=== PATIENT | male | born 1990 ===

== ENCOUNTER 2018-11-01 15:44 | Emergency (ER) | payer SELFPAY ==
[~2018-11-01] VITALS: Ht 182.9 cm; Wt 101.4 kg
[2018-11-01 15:49] VITALS: Ht 182.9 cm; Wt 101.4 kg
[2018-11-01 16:08] LABS: APPEARANCE CLEAR (CLEAR); BILIRUBIN NEGATIVE (NEGATIVE); COLOR STRAW (YELLOW); GLUCOSE NEGATIVE (NEGATIVE); KETONE NEGATIVE (NEGATIVE); NITRITE NEGATIVE (NEGATIVE); PROTEIN NEGATIVE (NEGATIVE); UROBILINOGEN NORMAL (NORMAL)
[2018-11-01 16:21] LABS: UDS - AMPHET NEGATIVE QUAL (NEGATIVE); UDS - BARB NEGATIVE QUAL (NEGATIVE); UDS - BENZO POSITIVE QUAL (NEGATIVE); UDS - COCAINE NEGATIVE QUAL (NEGATIVE); UDS - OPIATE NEGATIVE QUAL (NEGATIVE); UDS - PCP NEGATIVE QUAL (NEGATIVE); UDS - THC POSITIVE QUAL (NEGATIVE)
[2018-11-01] MEDS ORDERED: VISTARIL50 MG PO (20:05)
[2018-11-01 20:45] VITALS: BP 125/60
== END 2018-11-01 20:45 | disposition home or self-care (01) ==
LOC: D.ER 15:44
PROVIDERS: Family Medicine
DX: F19.939 Other psychoactive substance use, unspecified with withdrawal, unspecified (principal)